=== PATIENT | male | born 1990 ===

== ENCOUNTER 2016-11-07 11:08 | Emergency (ER) | payer OTHER ==
[2016-11-07 11:15] VITALS: BMI 25.4
[2016-11-07 11:16] VITALS: BP 141/75; PULSE 52; RESP 16; TEMP 98.1; O2SAT 100
[2016-11-07] MEDS ORDERED: Ampicillin/Sulbactam 1.5 GM in Sodium Chloride 0.9% 100 ML IVPB STA (12:18)
[2016-11-07 13:02] LABS: BASO % 0.2 % (0.0-2.0); EOS % 0.8 % (0.0-4.0); HEMOGLOBIN 15.2 g/dL (12.0-18.0); LYMPH # 1.7 K/uL (1.0-4.3); LYMPH % 28.8 % (20.0-40.0); MEAN CELL VOLUME 92.9 fl (80.0-94.0); MEAN CORPUSCULAR HEMOGLOBIN 31.3 pg (27.0-31.0); MEAN CORPUSCULAR HGB CONC 33.7 g/dL (33.0-37.0); MONO # 0.4 K/uL (0.0-0.8); MONO % 6.9 % (0.0-10.0); NEUT # 3.7 K/uL (1.8-7.0); NEUT % 63.3 % (50.0-75.0); NRBC % 0.1 % (0.0-0.0); RBC 4.87 Mil/uL (4.40-5.90); RED CELL DISTRIBUTION WIDTH 13.6 % (11.5-14.5); WHITE BLOOD COUNT 5.9 K/uL (4.8-10.8)
--- NOTE | 2016-11-07 13:09 | ED PDOC ---
Upper Extremity Pain/Injury Time Seen by Provider: 11/07/16 12:14 Chief Complaint (Nursing): Upper Extremity Problem/Injury Chief Complaint (Provider): fniger injury Additional Complaint(s): 25yo M in ED for eval of right hand injury sustained 1 week ago after injury at [id number] he had a splinter get into the middle phalanx of right 3rd digit and now with swelling, pain no drainage no fever. states that was able to remove the splinter fully. admits to [facility] due to pain. Past Medical History Reviewed: Historical Data, Nursing Documentation, Vital Signs Vital Signs: Last Vital Signs Temp 98.1 F 11/07/16 11:15 Pulse 52 L 11/07/16 11:15 Resp 16 11/07/16 11:15 BP 141/75 11/07/16 11:15 Pulse Ox 100 11/07/16 11:15 - Medical History PMH: No Chronic Diseases - Family History Family History: States: No Known Family Hx - Home Medications Home Medications: Ambulatory Orders Medication Instructions Recorded Cephalexin [cephalexin] 500 mg PO BID #20 cap 11/07/16 Clindamycin [Cleocin] 300 mg PO TID #30 cap 11/07/16 - Allergies Allergies/Adverse Reactions: Allergies Allergy/AdvReac Type Severity Reaction Status Date / Time No Known Allergies Allergy Verified 11/07/16 11:29 Review of Systems ROS Statement: Except As Marked, All Systems Reviewed And Found Negative Musculoskeletal: Positive for: Hand Pain Physical Exam - Reviewed Nursing Documentation Reviewed: Yes Vital Signs Reviewed: Yes - Physical Exam Appears: Positive for: Well, Non-toxic, No Acute Distress Skin: Positive for: Normal Color, Warm, DRY Cardiovascular/Chest: Positive for: Regular Rate, Rhythm Respiratory: Positive for: CNT, Normal Breath Sounds Extremity: Positive for: Other (right hand: 3rd middle phalanx with swelling pain with ROM, warmth FROM good pulses. ) Neurologic/Psych: Positive for: Alert, Oriented - Laboratory Results Result Diagrams: 11/07/16 12:48 11/07/16 12:48 - ECG O2 Sat by Pulse Oximetry: 100 - Progress ED Course And Treament: IV [id number]-unaysn and cbc/cmp/bld cx Medical Decision Making Medical Decision Making: pt without elevated WBC pt will be d.c with clindamycin and keflex f.u with hand surgery immediately. Disposition - Clinical Impression Clinical Impression: Finger infection - Patient ED Disposition Is Patient to be Admitted: No Counseled Patient/Family Regarding: Studies Performed, Diagnosis, Need For Followup, Rx Given - Disposition Referrals: Dwight Phillips MD [Medical Doctor] - Disposition: Routine/Home Disposition Time: 13:44 Condition: STABLE Prescriptions: Cephalexin [cephalexin] 500 mg PO BID #20 cap Clindamycin [Cleocin] 300 mg PO TID #30 cap Instructions: Abscess (ED) Forms: [employer] ([place]), [facility] ED School/Work Excuse Print Language: GERMAN
[2016-11-07 13:14] LABS: ALB/GLOB RATIO 1.6 (1.0-2.1); ALBUMIN 4.6 g/dL (3.5-5.0); ALT/SGPT 33 U/L (21-72); AST/SGOT 35 U/L (17-59); BLOOD UREA NITROGEN 17 mg/dl (9-20); CALCIUM 9.5 mg/dL (8.4-10.2); GFR AFRICAN-AMERICAN > 60; GFR NON-AFRICAN AMERICAN > 60
[2016-11-07] MEDS ORDERED: TDAP Vaccine 0.5 mL Syr IM ONE (13:41)
--- NOTE | 2016-11-08 07:58 | RAD ---
PROCEDURE: Right Hand Radiographs. HISTORY: trauma attn fith digit COMPARISON: None. FINDINGS: BONES: Normal. No fracture. JOINTS: Normal. No osteoarthritic changes. SOFT TISSUES: Normal. OTHER FINDINGS: None. IMPRESSION: No radiographic evidence of acute fracture or dislocation.
== END 2016-11-07 14:06 | disposition home or self-care (01) ==
LOC: H.ER 11:08
DX: L08.9 Local infection of the skin and subcutaneous tissue, unspecified (principal)

== ENCOUNTER 2017-02-15 00:35 | Emergency (ER) | payer OTHER ==
[2017-02-15 00:55] VITALS: BMI 26.9
--- NOTE | 2017-02-15 01:53 | ED PDOC ---
HPI: CCC, URI, Sore Throat Time Seen by Provider: 02/15/17 01:45 Chief Complaint (Nursing): ENT Problem Chief Complaint (Provider): left ear pain History Per: Patient History/Exam Limitations: no limitations Onset/Duration Of Symptoms: Hrs Current Symptoms Are (Timing): Still Present Additional History Per: Patient Additional Complaint(s): 26 y/o male presents with left ear pain x 4 hours. Denies fever, headache, nausea/vomiting, nasal congestion, cough, drainage from ear. One Ibuprofen 200mg tab and one leftover Amoxicillin 500mg tab taken. Past Medical History Reviewed: Historical Data, Nursing Documentation, Vital Signs Vital Signs: Last Vital Signs Temp 98.3 F 02/15/17 00:55 Pulse 66 02/15/17 00:55 Resp 16 02/15/17 00:55 BP 125/80 02/15/17 00:55 Pulse Ox 95 02/15/17 00:55 - Medical History PMH: No Chronic Diseases - Surgical History Surgical History: No Surg Hx - Family History Family History: States: No Known Family Hx - Living Arrangements Living Arrangements: With Family - Home Medications Home Medications: Ambulatory Orders Medication Instructions Recorded Cephalexin [cephalexin] 500 mg PO BID #20 cap 11/07/16 Clindamycin [Cleocin] 300 mg PO TID #30 cap 11/07/16 Amoxicillin 875 mg PO Q12 #14 tablet 02/15/17 - Allergies Allergies/Adverse Reactions: Allergies Allergy/AdvReac Type Severity Reaction Status Date / Time No Known Allergies Allergy Verified 02/15/17 00:55 Review of Systems ROS Statement: Except As Marked, All Systems Reviewed And Found Negative Eyes: Positive for: Pain (left) Physical Exam - Reviewed Nursing Documentation Reviewed: Yes Vital Signs Reviewed: Yes - Physical Exam Appears: Positive for: Well, Non-toxic, No Acute Distress (sleeping) ENT: Positive for: TM Is/Are (bulging left TM with + erythema. Right TM clear. EACs clear bilaterally. NO mastoid swelling/tenderness b/l) Neck: Positive for: Normal, Painless ROM Cardiovascular/Chest: Positive for: Regular Rate, Rhythm Respiratory: Positive for: Normal Breath Sounds Extremity: Positive for: Normal ROM Neurologic/Psych: Positive for: Alert, Oriented - ECG O2 Sat by Pulse Oximetry: 95 - Progress ED Course And Treament: Ibuprofen PO Patient educated on findings, discharged with rx Amoxicillin. Advised follow up PMD 2-3 days. Return to ED for worsening/concerning symptoms. Disposition - Clinical Impression Clinical Impression: Otitis media - Patient ED Disposition Is Patient to be Admitted: No Counseled Patient/Family Regarding: Diagnosis, Need For Followup, Rx Given - Disposition Referrals: [facility] [Outside] Disposition: Routine/Home Disposition Time: 01:55 Condition: GOOD Prescriptions: Amoxicillin 875 mg PO Q12 #14 tablet Instructions: Otitis Media (ED) Print Language: GREEK
[2017-02-15 02:37] VITALS: BP 119/78; PULSE 74; RESP 18; TEMP 98.1; O2SAT 100
== END 2017-02-15 02:20 | disposition home or self-care (01) ==
LOC: H.ER 00:35
DX: H66.92 Otitis media, unspecified, left ear (principal)